=== PATIENT | female | born 1995 | race Two or more races ===

== ENCOUNTER 2017-01-24 16:47 | Emergency (ER) | payer SELFPAY ==
[2017-01-24] MEDS ORDERED: LACTATED RINGERS 1,000 ML ONE (18:15)
[2017-01-24] MEDS ORDERED: ONDANSETRON 4 MG/2ML 2 ML VIAL ONE (18:15)
[2017-01-24 18:45] LABS: ABSOLUTE NEUTROPHIL COUNT 8.8 K/mm3 (1.8-7.7); BASO % 0.3 % (0.2-1.0); EOS % 0.2 % (0.9-2.9); HEMATOCRIT 41.8 % (37.0-47.0); HEMOGLOBIN 14.4 gm/l (12.0-16.0); IMM NEUT% 0.3 % (0-1); LYMPH % 9.1 % (15-45); MEAN CELL VOLUME 85.8 fl (81.0-99.0); MEAN CORPUSCULAR HEMOGLOBIN 29.6 pg (27.0-31.0); MEAN CORPUSCULAR HGB CONC 34.4 g/dl (33.0-37.0); MEAN PLATELET VOLUME 9.8 fl (7.4-10.4); MONO # 0.7 (0.0-0.8); MONO % 6.7 % (4-12); NEUT % 83.4 % (43-75); PLATELET COUNT 282 K/mm3 (130-400); RED CELL DISTRIBUTION WIDTH 11.7 % (11.5-14.5)
[2017-01-24 18:49] LABS: PH,URINE 6.5 (5.0-8.0); URINE BILIRUBIN NEGATIVE (NEGATIVE); URINE BLOOD 1+ (NEGATIVE); URINE GLUCOSE (UA) NEGATIVE (NEGATIVE); URINE LEUKOCYTE ESTERASE NEGATIVE (NEGATIVE); URINE NITRITE NEGATIVE (NEGATIVE); URINE PROTEIN NEGATIVE (NEGATIVE)
[2017-01-24 18:50] LABS: URINE APPEARANCE CLEAR; URINE COLOR YELLOW; URINE UROBILINOGEN 4 mg/dL (0-1 mg/dl)
[2017-01-24 18:51] LABS: HCG,QUALITATIVE URINE NEGATIVE
[2017-01-24 18:55] LABS: ALB/GLOB RATIO 1.3 (>1.0); ALBUMIN 4.3 gm/dL (3.5-5.7); CALCIUM 9.1 mg/dL (8.6-10.3)
[2017-01-24 18:56] LABS: URINE BACTERIA TRACE; URINE WBC 0-2 /hpf
[2017-01-24] MEDS ORDERED: MAALOX/LIDO2%VISC/SIMETHICONE 40 ML BOT ONE (19:14)
== END 2017-01-24 19:38 | disposition home or self-care (01) ==
LOC: ED 16:47
DX: R11.2 Nausea with vomiting, unspecified (principal); R19.7 Diarrhea, unspecified; Z72.0 Tobacco use
CPT/HCPCS: 83690; 81025; 85025; 80053; 81001; 99283 ×2; 96374; 96361; A9270; J2405; J7120